=== PATIENT | female | born 1975 | race American Indian/Alaskan Native ===

== ENCOUNTER 2017-03-12 14:29 | Emergency (ER) | payer SELFPAY ==
[2017-03-12 16:59] VITALS: BP 146/106
[2017-03-12 19:23] LABS: Bacteria,Urine 2+ /HPF (Negative); Bilirubin,Urine NEG (Negative); Blood,Urine LG (Negative); Ketones,Urine TR mg/dL (Negative); Leukocyte Esterase,Urine NEG (Negative); Mucus,Urine 1+ /HPF; Nitrite,Urine NEG (Negative); Urobilinogen,Urine < 2.0 mg/dL (<2.0)
[2017-03-12 19:26] LABS: RBC,Urine > 182.0 /HPF (0.0-6.0)
--- NOTE | 2017-03-12 20:07 | Emergency Department Report ---
HPI - General Chief Complaint: Back Pain/Injury Time Seen by Provider: 03/12/17 19:45 - HPI HPI: Patient here complaining of bilateral lower back pain that is burning 10. Denies any urinary burning frequency or urgency. She said the pain is more in the left. She says she just started last Sunday and she noticed that she's having a lot of pain. She is "in a kitchen and she says she stands on her feet a lot. Denies any injury. Denies any fever or chills. Denies any nausea or vomiting. No radiation of pain. Denies any previous back injury. Has any abdominal pain. Patient is currently on her menses. She says she has a history of bilateral tubal ligation she had her tubes and entirely. ED Past Medical Hx - Past Medical History Previous Medical History?: Yes Hx Hypertension: No Hx Congestive Heart Failure: No Hx Diabetes: No Hx Deep Vein Thrombosis: No Hx Renal Disease: No Hx Sickle Cell Disease: No Hx Seizures: No Hx Asthma: No Hx COPD: No Hx HIV: No - Surgical History Past Surgical History?: Yes - Family History Family history: hypertension - Social History Smoking Status: Never Smoker Substance Use Type: Alcohol - Medications Home Medications: Home Medications Medication Instructions Recorded Confirmed Last Taken Type Ferrous Sulfate [Feosol 325 MG tab] 325 mg PO BID #60 tablet 06/04/14 07/20/14 07/05/14 09:00 Rx HYDROcodone/APAP 5-325 [[place] 1 each PO Q6HR PRN #30 tablet 07/20/14 Unknown Rx 5/325] Cyclobenzaprine [Flexeril] 10 mg PO TID PRN #15 tablet 03/12/17 Unknown Rx Ibuprofen [Motrin] 600 mg PO Q8H PRN #15 tablet 03/12/17 Unknown Rx ED Review of Systems ROS: Stated complaint: BURING PAIN LOWER BACK Other details as noted in HPI Comment: All other systems reviewed and negative Constitutional: denies: chills ENT: denies: ear pain, throat pain, congestion Respiratory: no symptoms reported Cardiovascular: denies: chest pain, palpitations, edema, syncope Gastrointestinal: denies: abdominal pain, nausea, vomiting, diarrhea Genitourinary: denies: urgency, dysuria, frequency, hematuria, discharge, abnormal menses Musculoskeletal: back pain. denies: arthralgia Skin: denies: rash Neurological: denies: headache, weakness, numbness, paresthesias, confusion, abnormal gait, vertigo Physical Exam - Physical Exam Vital Signs: Vital Signs 03/12/17 16:53 Temperature 97.8 F Pulse Rate 73 Respiratory 16 Rate Blood Pressure 146/106 O2 Sat by Pulse 100 Oximetry General: This is a 41-year-old female well-nourished well-developed in no acute distress. ED Course Vital Signs 03/12/17 16:53 Temperature 97.8 F Pulse Rate 73 Respiratory 16 Rate Blood Pressure 146/106 O2 Sat by Pulse 100 Oximetry - Reevaluation(s) Reevaluation #1: 03/12/17 20:36 Patient given Toradol 60 mg IM and emergency room. ED Medical Decision Making - Lab Data Lab Results 03/12/17 Range/Units 17:59 Urine Color Red (Yellow) Urine Turbidity Cloudy (Clear) Urine pH she started her menses yesterday. 6.0 (5.0-7.0) Ur Specific [place] 1.025 (1.003-1.030) Urine Protein 100 mg/dl (Negative) mg/dL Urine Glucose (UA) Neg (Negative) mg/dL Urine Ketones Tr (Negative) mg/dL Urine Blood Lg (Negative) Urine Nitrite Neg (Negative) Urine Bilirubin Neg (Negative) Urine Urobilinogen < 2.0 (<2.0) mg/dL Ur Leukocyte Esterase Neg (Negative) Urine WBC (Auto) 3.0 (0.0-6.0) /HPF Urine RBC (Auto) > 182.0 (0.0-6.0) /HPF U Epithel Cells (Auto) 3.0 (0-13.0) /HPF Urine Bacteria (Auto) 2+ (Negative) /HPF Urine Mucus 1+ /HPF Urine culture pending Patient is currently on her menses - Radiology Data Radiology results: report reviewed - Medical Decision Making ED course: She with diagnosis of lumbar pain. She does not have any vertebral tenderness noted that she have any CVA tenderness. Patient was given Toradol 60 mg IM and emergency room for pain. Urinalysis did not reveal any urinary tract infection however I did send a culture out and I told patient that we'll call her if she needs to be on antibiotic. I discussed with her that she will need to see orthopedic docto Pain continues. She is not experiencing any radiculopathy. Patient discharged home with prescription for Flexeril and Motrin Motrin. Critical care attestation.: If time is entered above; I have spent that time in minutes in the direct care of this critically ill patient, excluding procedure time. ED Disposition Clinical Impression: Pain in lower back Qualifiers: Chronicity: acute Back pain laterality: bilateral Sciatica presence: without sciatica Qualified Code(s): M54.5 - Low back pain Disposition: DISCHARGED TO HOME OR SELFCARE Is pt being admited?: No Does the pt Need Aspirin: No Condition: Stable Instructions: Acute Low Back Pain (ED) Additional Instructions: follow up at [facility] Prescriptions: Cyclobenzaprine [Flexeril] 10 mg PO TID PRN #15 tablet PRN Reason: Muscle Spasm Ibuprofen [Motrin] 600 mg PO Q8H PRN #15 tablet PRN Reason: Pain Referrals: [facility] [Outside] - 2-3 Days BRITTNEY ROUSSEAU MD [Staff Physician] - 2-3 Days Forms: Work/School Release Form(ED)
[2017-03-12] MEDS ORDERED: TORADOL IM ONE (20:16)
== END 2017-03-12 21:10 | disposition home or self-care (01) ==
LOC: ED 14:29
DX: M54.5 Low back pain (principal)
CPT/HCPCS: 81001; 96372; 99283; J1885

== ENCOUNTER 2019-03-10 17:02 | Emergency (ER) | payer SELFPAY ==
[2019-03-11 19:28] VITALS: BP 142/97
== END 2019-03-10 20:20 | disposition home or self-care (01) ==
LOC: ED 17:02
DX: R09.81 Nasal congestion (principal); Z53.21 Procedure and treatment not carried out due to patient leaving prior to being seen by health care provider

== ENCOUNTER 2020-02-23 13:44 | Emergency (ER) | payer SELFPAY ==
--- NOTE | 2020-02-23 13:57 | Event Note ---
ED Screening Note Date of service: 02/23/20 Time: 13:52 ED Screening Note: This initial assessment/diagnostic orders/clinical plan/treatment(s) is/are subject to change based on patients health status, clinical progression and re- assessment by fellow clinical providers in the ED. Further treatment and workup at subsequent clinical providers discretion. Patient/guardian urged not to elope from the ED as their condition may be serious if not clinically assessed and managed. Initial orders include: 44yo F states that she R facial tingling, MANRIQUE, neck pain along with R arm and hand tingling x 1 day. Laying down makes symptoms increase.
[2020-02-23 14:34] LABS: Hematocrit 33.6 % (30.3-42.9); Hemoglobin 10.3 gm/dl (10.1-14.3); Mean Corpuscular HGB Conc 31 % (30-34); Platelet Count 358 K/mm3 (140-440); Red Blood Count 5.07 M/mm3 (3.65-5.03); Red Cell Distribution Width 19.8 % (13.2-15.2)
[2020-02-23 14:35] LABS: Mean Corpuscular Volume 66 fl (79-97)
[2020-02-23 14:53] LABS: Alanine Aminotransferase 14 units/L (7-56); Albumin 4.2 g/dL (3.9-5); BUN/Creatinine Ratio 16; Blood Urea Nitrogen 11 mg/dL (7-17); Calcium 9.1 mg/dL (8.4-10.2); Hemolysis Index 3
[2020-02-23] MEDS ORDERED: cloNIDine 0.1 MG TAB PO ONE (21:03)
--- NOTE | 2020-02-23 21:49 | Cat Scan Report ---
CT HEAD WITHOUT CONTRAST INDICATION / CLINICAL INFORMATION: right sided headache. TECHNIQUE: All CT scans at this location are performed using CT dose reduction for ALARA by means of automated e xposure control. COMPARISON: None available. FINDINGS: HEMORRHAGE: No evidence of intracranial hemorrhage or extra-axial fluid collection. EXTRA-AXIAL SPACES: Cortical sulci, sylvian fissures and basilar cisterns have an unremarkable appear ance. VENTRICULAR SYSTEM: The ventricular system is of normal size and configuration. CEREBRAL PARENCHYMA: No areas of abnormal brain parenchymal attenuation are identified. There is no i ndication of recent infarction. MIDLINE SHIFT OR HERNIATION: There is no mass effect. CEREBELLUM / BRAINSTEM: Brainstem and cerebellum have an unremarkable appearance. INTRACRANIAL VESSELS:No abnormalities are identified on this noncontrast head CT. ORBITS: visualized portions of the orbits have an unremarkable appearance. SOFT TISSUES of HEAD: No significant abnormality. CALVARIUM: Evaluation of bone windows reveals no abnormalities. PARANASAL SINUSES / MASTOID AIR CELLS: Paranasal sinuses are free from inflammatory mucosal disease. Mastoid air cells are normally pneumatized. IMPRESSION: 1. No abnormalities are identified on head CT without contrast. Signer Name: Jimenez Armstrong MD Signed: 02/23/2020 9:44 PM Workstation Name: [id number]
--- NOTE | 2020-02-23 21:53 | Cat Scan Report ---
CT CERVICAL SPINE WITHOUT CONTRAST INDICATION / CLINICAL INFORMATION: Right arm numbness. Neck pain. TECHNIQUE: Axial CT images were obtained through the cervical spine. Sagittal and coronal reformatted images wer e produced. All CT scans at this location are performed using CT dose reduction for ALARA by means of automated exposure control. COMPARISON: None available. FINDINGS: ALIGNMENT: Loss of the normal cervical lordosis is demonstrated. No additional abnormalities are iden tified. VERTEBRAE: Anterior osteophyte formation is observed at several levels. Vertebral morphology is other painter normally maintained. DISC SPACES: Disc height is fairly well-maintained. INDIVIDUAL LEVEL ANALYSIS: C2-3:No abnormality. C3-4:No abnormality. C4-5: Mild anterior osteophyte formation is noted. Right worse than left uncovertebral arthritic magallanes ges are noted. Central spinal canal and neuroforamina are adequately maintained. C5-6: Mild anterior osteophyte formation is observed. Left worse than right uncovertebral arthropathy is demonstrated. Central spinal canal and neuroforamina are adequately maintained. C6-7:No abnormality. C7-T1:No abnormality. CRANIOCERVICAL JUNCTION:No significant abnormality. SPINAL CANAL: Central spinal canal is adequately maintained throughout. PARASPINAL SOFT TISSUES: No significant abnormality. LUNG APICES: Lung apices are largely excluded from this examination. IMPRESSION: 1. Mild degenerative changes at C4-5 and C5-6 levels. 2. No indication of central canal stenosis or neuroforaminal encroachment. Signer Name: Jimenez Armstrong MD Signed: 02/23/2020 9:49 PM Workstation Name: [id number]
--- NOTE | 2020-02-23 22:05 | Emergency Department Report ---
ED General Adult HPI - General Chief complaint: Headache Stated complaint: NUMBNESS NECK Time Seen by Provider: 02/23/20 13:50 Source: patient Mode of arrival: Ambulatory Limitations: No Limitations - History of Present Illness Initial comments: Patient is a 44-year-old F Maltese female who is complaining of some numbness to the right upper extremity and some discomfort in the right side of her neck for the last day. States that began slightly yesterday but worsened upon awakening this morning. Patient states the pain is worse when she turns her head from side to side at times. There is no shooting pain into the right upper extremity but she does feel [id number]-[id number] sensation. She states there is no weakness. 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 Patient states she has a mild headache on the right side as well which is a 4 out of 10 in severity. She denies syncope chest pain nausea vomiting diarrhea. Severity scale (0 -10): 0 - Related Data Previous Rx's Medication Instructions Recorded Last Taken Type Ferrous Sulfate [Feosol 325 MG tab] 325 mg PO BID #60 tablet 06/04/14 07/05/14 09:00 Rx HYDROcodone/APAP 5-325 [[place] 1 each PO Q6HR PRN #30 tablet 07/20/14 Unknown Rx 5/325] Cyclobenzaprine [Flexeril] 10 mg PO TID PRN #15 tablet 03/12/17 Unknown Rx Ibuprofen [Motrin] 600 mg PO Q8H PRN #15 tablet 03/12/17 Unknown Rx Fexofenadine/Pseudoephedrine 1 each PO BID #14 tab.er.12h 03/10/19 Unknown Rx [Isabel-D 12 Hour Tablet] Mometasone Furoate [Nasonex] 2 spray NS QDAY #1 bottle 03/10/19 Unknown Rx predniSONE [Deltasone] 20 mg PO QDAY #5 tab 03/10/19 Unknown Rx Amlodipine Besylate [Norvasc] 5 mg PO DAILY #30 tablet 02/23/20 Unknown Rx methOCARBAMOL [Robaxin TAB] 500 mg PO Q6H PRN #14 tablet 02/23/20 Unknown Rx predniSONE [Deltasone] 20 mg PO QDAY #5 tab 02/23/20 Unknown Rx traMADoL [Ultram] 50 mg PO Q6HR PRN #12 tablet 02/23/20 Unknown Rx Allergies Allergy/AdvReac Type Severity Reaction Status Date / Time No Known Allergies Allergy Verified 07/09/14 13:39 ED Review of Systems ROS: Stated complaint: NUMBNESS NECK Other details as noted in HPI Comment: All other systems reviewed and negative ED Past Medical Hx - Past Medical History Previous Medical History?: No Hx Hypertension: No Hx Congestive Heart Failure: No Hx Diabetes: No Hx Deep Vein Thrombosis: No Hx Renal Disease: No Hx Sickle Cell Disease: No Hx Seizures: No Hx Asthma: No Hx COPD: No Hx HIV: No - Surgical History Past Surgical History?: No - Social History Substance Use Type: Alcohol - Medications Home Medications: Home Medications Medication Instructions Recorded Confirmed Last Taken Type Ferrous Sulfate [Feosol 325 MG tab] 325 mg PO BID #60 tablet 06/04/14 07/20/14 07/05/14 09:00 Rx HYDROcodone/APAP 5-325 [[place] 1 each PO Q6HR PRN #30 tablet 07/20/14 Unknown Rx 5/325] Cyclobenzaprine [Flexeril] 10 mg PO TID PRN #15 tablet 03/12/17 Unknown Rx Ibuprofen [Motrin] 600 mg PO Q8H PRN #15 tablet 03/12/17 Unknown Rx Fexofenadine/Pseudoephedrine 1 each PO BID #14 tab.er.12h 03/10/19 Unknown Rx [Isabel-D 12 Hour Tablet] Mometasone Furoate [Nasonex] 2 spray NS QDAY #1 bottle 03/10/19 Unknown Rx predniSONE [Deltasone] 20 mg PO QDAY #5 tab 03/10/19 Unknown Rx Amlodipine Besylate [Norvasc] 5 mg PO DAILY #30 tablet 02/23/20 Unknown Rx methOCARBAMOL [Robaxin TAB] 500 mg PO Q6H PRN #14 tablet 02/23/20 Unknown Rx predniSONE [Deltasone] 20 mg PO QDAY #5 tab 02/23/20 Unknown Rx traMADoL [Ultram] 50 mg PO Q6HR PRN #12 tablet 02/23/20 Unknown Rx ED Physical Exam - General Limitations: No Limitations General appearance: alert, in no apparent distress - Head Head exam: Present: atraumatic, normocephalic - Eye Eye exam: Present: normal appearance - ENT ENT exam: Present: mucous membranes moist - Neck Neck exam: Present: normal inspection - Respiratory Respiratory exam: Present: normal lung sounds bilaterally. Absent: respiratory distress, wheezes, rales, rhonchi - Cardiovascular Cardiovascular Exam: Present: regular rate, normal rhythm, normal heart sounds. Absent: systolic murmur, diastolic murmur, rubs, gallop - GI/Abdominal GI/Abdominal exam: Present: soft, normal bowel sounds. Absent: distended, tenderness, rebound - Extremities Exam Extremities exam: Present: normal inspection, full ROM. Absent: tenderness - Back Exam Back exam: Present: normal inspection - Neurological Exam Neurological exam: Present: alert, oriented X3 - Psychiatric Psychiatric exam: Present: normal affect, normal mood - Skin Skin exam: Present: warm, dry, intact, normal color. Absent: rash ED Course Vital Signs 02/23/20 02/23/20 02/23/20 13:47 21:08 21:42 Temperature 98 F 98.3 F Pulse Rate 86 87 Respiratory 16 16 Rate Blood Pressure 180/105 Blood Pressure 167/105 180/105 [Right] O2 Sat by Pulse 98 97 Oximetry ED Medical Decision Making - Lab Data Result diagrams: 02/23/20 14:17 02/23/20 14:17 - Radiology Data [facility] [address] [place] [address] Cat Scan Report Signed Patient: BARBARA RAMOS MR#: [id number] : 1975 Acct:[id number] Age/Sex: 44 / F ADM Date: 02/23/20 Loc: ED Attending Dr: Ordering Physician: AXEL LOCO MD Date of Service: 02/23/20 Procedure(s): CT cervical spine wo con Accession Number(s): [id number] cc: AXEL LOCO MD CT CERVICAL SPINE WITHOUT CONTRAST INDICATION / CLINICAL INFORMATION: Right arm numbness. Neck pain. TECHNIQUE: Axial CT images were obtained through the cervical spine. Sagittal and coronal reformatted images were produced. All CT scans at this location are performed using CT dose reduction for ALARA by means of automated exposure control. COMPARISON: None available. FINDINGS: ALIGNMENT: Loss of the normal cervical lordosis is demonstrated. No additional abnormalities are identified. VERTEBRAE: Anterior osteophyte formation is observed at several levels. Vertebral morphology is otherwise normally maintained. DISC SPACES: Disc height is fairly well-maintained. INDIVIDUAL LEVEL ANALYSIS: C2-3:No abnormality. C3-4:No abnormality. C4-5: Mild anterior osteophyte formation is noted. Right worse than left uncovertebral arthritic changes are noted. Central spinal canal and neuroforamina are adequately maintained. C5-6: Mild anterior osteophyte formation is observed. Left worse than right uncovertebral arthropathy is demonstrated. Central spinal canal and neuroforamina are adequately maintained. C6-7:No abnormality. C7-T1:No abnormality. CRANIOCERVICAL JUNCTION:No significant abnormality. SPINAL CANAL: Central spinal canal is adequately maintained throughout. PARASPINAL SOFT TISSUES: No significant abnormality. LUNG APICES: Lung apices are largely excluded from this examination. IMPRESSION: 1. Mild degenerative changes at C4-5 and C5-6 levels. 2. No indication of central canal stenosis or neuroforaminal encroachment. Signer Name: Jimenez Armstrong MD Signed: 02/23/2020 9:49 PM Workstation Name: [id number] [place] [address] Cat Scan Report Signed Patient: BARBARA RAMOS MR#: [id number] : 1975 Acct:[id number] Age/Sex: 44 / F ADM Date: 02/23/20 Loc: ED Attending Dr: Ordering Physician: AXEL LOCO MD Date of Service: 02/23/20 Procedure(s): CT head/brain wo con Accession Number(s): [id number] cc: AXEL LOCO MD CT HEAD WITHOUT CONTRAST INDICATION / CLINICAL INFORMATION: right sided headache. TECHNIQUE: All CT scans at this location are performed using CT dose reduction for ALARA by means of automated exposure control. COMPARISON: None available. FINDINGS: HEMORRHAGE: No evidence of intracranial hemorrhage or extra-axial fluid colle ction. EXTRA-AXIAL SPACES: Cortical sulci, sylvian fissures and basilar cisterns have an unremarkable appearance. VENTRICULAR SYSTEM: The ventricular system is of normal size and configuration. CEREBRAL PARENCHYMA: No areas of abnormal brain parenchymal attenuation are identified. There is no indication of recent infarction. MIDLINE SHIFT OR HERNIATION: There is no mass effect. CEREBELLUM / BRAINSTEM: Brainstem and cerebellum have an unremarkable appearance. INTRACRANIAL VESSELS:No abnormalities are identified on this noncontrast head CT. ORBITS: visualized portions of the orbits have an unremarkable appearance. SOFT TISSUES of HEAD: No significant abnormality. CALVARIUM: Evaluation of bone windows reveals no abnormalities. PARANASAL SINUSES / MASTOID AIR CELLS: Paranasal sinuses are free from inflammatory mucosal disease. Mastoid air cells are normally pneumatized. IMPRESSION: 1. No abnormalities are identified on head CT without contrast. Signer Name: Jimenez Armstrong MD Signed: 02/23/2020 9:44 PM Workstation Name: [email or web address] - Medical Decision Making Patient does have some degenerative changes to the cervical spine. The right side is worse than the left. Patient likely with a cervical radiculopathy and she will be discharged home with medication for symptomatic relief. Critical care attestation.: If time is entered above; I have spent that time in minutes in the direct care of this critically ill patient, excluding procedure time. ED Disposition Clinical Impression: Cervical radiculopathy, Hypertensive urgency Disposition: DC- TO HOME OR SELFCARE Is pt being admited?: No Does the pt Need Aspirin: No Condition: Stable Instructions: Cervical Radiculopathy (ED), Hypertension (ED) Referrals: BRITTNEY ROUSSEAU MD [Staff Physician] - 3-5 Days PRIMARY CARE, [Primary Care Provider] - 3-5 Days Time of Disposition: 22:05 [place] Documentation - information: Height 4 ft 11 in - Level of Consciousness 1a. Level of Consciousness: alert/keenly responsive - LOC Questions 1b. LOC Questions: answers both correctly - LOC Command 1c. LOC Commands: performs tasks correctly - Best Gaze 2. Best Gaze: normal - Visual 3. Visual: no visual loss - Facial Palsy 4. Facial Palsy: normal symmetrical movement - Motor Arm 5a. Motor Arm Left: no drift 5b. Motor Arm Right: no drift - Motor Leg 6a. Motor Leg Left: no drift 6b. Motor Leg Right: no drift - Limb Ataxia 7. Limb Ataxia: absent - Sensory 8. Sensory: normal - Best Language 9. Best Language: no aphasia - Dysarthria 10. Dysarthria: normal - Extinction and Inattention 11. Extinction/Inattention: no abnormality - Scoring Total Score: 0 Stroke Severity: No Stroke Symptoms
[2020-02-23 22:32] VITALS: BP 159/92
== END 2020-02-23 22:32 | disposition home or self-care (01) ==
LOC: ED 13:44
DX: M54.12 Radiculopathy, cervical region (principal); I16.0 Hypertensive urgency; Z79.899 Other long term (current) drug therapy
CPT/HCPCS: 36415; 70450; 72125; 80053; 84484; 85027; 93005; 93010